=== PATIENT | female | born 1960 | race African-American/Black ===

== ENCOUNTER 2019-03-20 15:50 | Inpatient (IN) | payer OTHER ==
[2019-03-20 18:38] VITALS: BMI 32.3
--- NOTE | 2019-03-20 22:09 | HP ---
CIWA Score Nausea/Vomitin (v omiting x 2) Muscle Tremors: 3 Anxiety: 4-Mod. Anxious/Guarded Agitation: 3 Paroxysmal Sweats: 2 Orientation: 0-Oriented Tacttile Disturbances: 0-None Auditory Disturbances: 0-None Visual Disturbances: 0-None Headache: 4-Moderately Severe CIWA-Ar Total Score: 18 - Admission Criteria OASAS Guidelines: Admission for Medically Managed Detox: Requires at least one of the followin. CIWA greater than 12 2. Seizures within the past 24 hours 3. Delirium tremens within the past 24 hours 4. Hallucinations within the past 24 hours 5. Acute intervention needed for co occurring medical disorder 6. Acute intervention needed for co occurring psychiatric disorder 7. Severe withdrawal that cannot be handled at a lower level of care (continued vomiting, continued diarrhea, abnormal vital signs) requiring intravenous medication and/or fluids 8. Admitting History and Physical - Smoking History Smoking history: Current every day smoker Have you smoked in the past 12 months: Yes Aproximately how many cigarettes per day: 10 Admission ROS [facility] Chief Complaint: Alcohol withdrawal symptoms Allergies/Adverse Reactions: Allergies Allergy/AdvReac Type Severity Reaction Status Date / Time No Known Allergies Allergy Verified 03/20/19 18:29 History of Present Illness: 58 years old female with a long history of alcohol dependence is seeking admission to detox. Patient reports that she had 23 years of sobriety and relapsed in 2010. She was hospitalized involuntarily in 2014 at [facility] for 2 months for suicide attempt and Bipolar depression. She denies suicidal ideation at this time. She has medical history of hypertension, GERD and Psychiatric history of Bipolar disorder, Schizophrenia, depression and anxiety. Patient denies seizure activities and blackouts. Exam Limitations: No Limitations - Ebola screening Have you traveled outside of the country in the last 21 days: No Have you had contact with anyone from an Ebola affected area: No Do you have a fever: No - Review of Systems Constitutional: Chills, Malaise, Night Sweats, Changes in sleep Respiratory: reports: No Symptoms reported Cardiac: reports: No Symptoms Reported GI: reports: Diarrhea (x 3), Poor Appetite, Poor Fluid Intake, Vomiting, Abdominal cramping : reports: No Symptoms Reported Musculoskeletal: reports: Back Pain, Joint Pain, Muscle Pain Integumentary: reports: Dryness, Flushing Neuro: reports: Headache, Tremors Endocrine: reports: No Symptoms Reported Hematology: reports: No Symptoms Reported Psychiatric: reports: Mood/Affect Appropiate, Orientated x3, Anxious, Depressed Other Systems: Reviewed and Negative Patient History - Patient Medical History Hx Anemia: No Hx Asthma: No Hx Chronic Obstructive Pulmonary Disease (COPD): No Hx Cancer: No Hx Cardiac Disorders: No Hx Congestive Heart Failure: No Hx Hypertension: Yes (Norvasc ) Hx Hypercholesterolemia: No HX Cerebrovascular Accident: No Hx Seizures: No Hx Diabetes: No Hx Gastrointestinal Disorders: No Hx Liver Disease: No Hx Genitourinary Disorders: No Hx Sexually Transmitted Disorders: No Hx Renal Disease (ESRD): No Hx Thyroid Disease: No Hx Human Immunodeficiency Virus (HIV): No (Negative December 2018) Hx Hepatitis C: No Hx Depression: Yes (Not on medication) Hx Suicide Attempt: No (Attempt in 2014. Denies suicidal ideation at this time) Hx Bipolar Disorder: Yes Hx Schizophrenia: Yes Other Medical History: Anxiety - Patient Surgical History Past Surgical History: No Hx Neurologic Surgery: No Hx Cataract Extraction: No Hx Cardiac Surgery: No Hx Lung Surgery: No Hx Breast Surgery: No Hx Breast Biopsy: No Hx Abdominal Surgery: No Hx Appendectomy: No Hx Cholecystectomy: No Hx Genitourinary Surgery: No Hx Section: No Hx Orthopedic Surgery: No Anesthesia Reaction: No - PPD History Previous Implant?: Yes Documented Results: Negative w/o proof Implanted On Prior [facility] Admission?: Yes PPD to be Administered?: Yes - Reproductive History Patient is a Female of Child Bearing Age (11 -55 yrs old): Yes LMP comment: Menopausal - Smoking Cessation Smoking history: Current every day smoker Have you smoked in the past 12 months: Yes Aproximately how many cigarettes per day: 10 Hx Chewing Tobacco Use: No Initiated information on smoking cessation: Yes 'Breaking Loose' booklet given: 03/20/19 - Substance & Tx. History Hx Alcohol Use: Yes Hx Substance Use: No Substance Use Type: Cocaine, Marijuana Hx Substance Use Treatment: Yes ([facility] 2010) - Substances abused Alcohol Substance route: Oral Frequency: Daily Amount used: LIQUOR- 2 PINTS BEER- 1 SIX PACK Age of first use: 15 Date of last use: 03/20/19 Heroin Substance route: Inhalation Frequency: Daily Amount used: 2 BAGS Age of first use: 19 Date of last use: 03/18/19 Admission Physical Exam [facility] - Vital Signs Vital Signs: Vital Signs - 24 hr 03/20/19 18:27 Temperature 97.0 F L Pulse Rate 91 H Respiratory 18 Rate Blood Pressure 154/92 - Physical General Appearance: Yes: Moderate Distress, Tremorous, Irritable, Anxious HEENTM: Yes: Within Normal Limits Respiratory: Yes: Lungs Clear, Normal Breath Sounds, No Respiratory Distress Neck: Yes: Supple Breast: Yes: Breast Exam Deferred Cardiology: Yes: Regular Rhythm, Regular Rate Abdominal: Yes: Normal Bowel Sounds, Soft Genitourinary: Yes: Within Normal Limits Back: Yes: Normal Inspection Musculoskeletal: Yes: Back pain, Muscle Pain Extremities: Yes: Tremors Neurological: Yes: Alert, Normal Mood/Affect Integumentary: Yes: Warm Lymphatic: Yes: Within Normal Limits - Diagnostic (1) Alcohol dependence with withdrawal, uncomplicated Current Visit: Yes Status: Chronic (2) GERD (gastroesophageal reflux disease) Current Visit: Yes Status: Chronic Qualifiers: Esophagitis presence: esophagitis presence not specified Qualified Code(s) : K21.9 - Gastro-esophageal reflux disease without esophagitis (3) HTN (hypertension) Current Visit: Yes Status: Chronic Qualifiers: Hypertension type: essential hypertension Qualified Code(s): I10 - Essential (primary) hypertension (4) Nicotine dependence Current Visit: Yes Status: Chronic Qualifiers: Nicotine product type: cigarettes Substance use status: in withdrawal Qualified Code(s): F17.213 - Nicotine dependence, cigarettes, with withdrawal Cleared for Admission [facility] - Detox or Rehab [facility] Level of Care: Medically Managed Detox Regimen/Protocol: Librium Breathalyzer - Breathalyzer Breathalyzer: 0 Urine Drug Screen - Test Device Lot number: [id number] Expiration date: 10/23/20 - Control Is test valid?: Yes - Results Drug screen NEGATIVE: No Urine drug screen results: THC-Marijuana, BOGDAN-Cocaine Inpatient Rehab Admission - Rehab Decision to Admit Inpatient rehab admission?: No
[2019-03-20] MEDS ORDERED: BISMUTH SUBSALICYLATE 524 MG/30 ML UD PO PRN (22:23)
[2019-03-20] MEDS ORDERED: MAG HYDROX/AL HYDROX/SIMETH 30 ML UNIT-DOSE CUP PO PRN (22:23)
[2019-03-20] MEDS ORDERED: MAGNESIUM HYDROX 2400MG/30ML ORAL SUSPENSION 30 ML CUP PO PRN (22:23)
[2019-03-20] MEDS ORDERED: MENTHOL/PHENOL 1 EACH UD MM PRN (22:23)
[2019-03-20] MEDS ORDERED: NICOTINE POLACRILEX 2 MG GUM BUC PRN (22:23)
[2019-03-20] MEDS ORDERED: ACETAMINOPHEN 325 MG TABLET (FP) PO PRN ×2 (22:23)
[2019-03-20] MEDS ORDERED: MAGNESIUM CITRATE 300 ML BOTTLE PO PRN (22:23)
[2019-03-20] MEDS ORDERED: cloNIDine HCL 0.1 MG TABLET PO ONE (22:30)
[2019-03-20] MEDS: chlordiazePOXIDE HCL 25 MG CAPSULE PO SCH (23:29)
[2019-03-20] MEDS: MELATONIN 5 MG TABLETS PO PRN (23:33)
[2019-03-21] MEDS: hydrOXYzine PAMOATE 25 MG CAPSULE (FP) PO PRN (01:18)
[2019-03-21] MEDS: IBUPROFEN 400 MG TABLET (FP) PO PRN ×4 (02:09→23:06)
[2019-03-21] MEDS: METHOCARBAMOL 500 MG TABLET PO PRN ×4 (02:09→23:06)
[2019-03-21] MEDS: chlordiazePOXIDE HCL 25 MG CAPSULE PO PRN ×3 (02:09→13:33)
[2019-03-21] MEDS: chlordiazePOXIDE HCL 25 MG CAPSULE PO SCH ×4 (06:21→22:22)
[2019-03-21] MEDS: amLODIPine BESYLATE 10 MG TABLET (FP) PO SCH (10:04)
[2019-03-21] MEDS: FAMOTIDINE 20 MG TABLET PO SCH (10:04)
[2019-03-21] MEDS: PRENATAL VITAMINS W/ FOLIC ACID TABLET (FP) PO SCH (10:04)
[2019-03-21] MEDS: ASPIRIN 81 MG CHEWABLE TABLETS PO SCH (10:04)
[2019-03-21] MEDS: NICOTINE 14 MG/24 HOURS TOPICAL PATCH TD SCH (10:04)
[2019-03-21 10:19] LABS: HEMATOCRIT 46.3 % (32.4-45.2); HEMOGLOBIN 14.9 GM/dL (10.7-15.3); MCH 28.4 pg (25.7-33.7); MCHC 32.2 g/dl (32.0-36.0); MEAN CELL VOLUME 88.2 fl (80-96); MEAN PLT VOLUME 9.9 fl (7.5-11.1); PLATELET COUNT 305 K/MM3 (134-434); RBC 5.25 M/mm3 (3.60-5.2); RDW 17.1 % (11.6-15.6); WHITE BLOOD COUNT 9.7 K/mm3 (4.0-10.0)
[2019-03-21 10:23] LABS: ALBUMIN 3.7 g/dl (3.4-5.0); BILIRUBIN,TOTAL 0.6 mg/dL (0.2-1); BLOOD UREA NITROGEN 11.4 mg/dL (7-18); CALCIUM 9.7 mg/dL (8.5-10.1); CREATININE 0.9 mg/dL (0.55-1.3); POTASSIUM 4.6 mmol/L (3.5-5.1); TOT PROT 7.3 g/dl (6.4-8.2)
--- NOTE | 2019-03-21 12:24 | PN ---
[facility] CIWA - CIWA Score Nausea/Vomitin-No Nausea/No Vomiting Muscle Tremors: 2 Anxiety: 3 Agitation: 2 Paroxysmal Sweats: 3 Orientation: 0-Oriented Tacttile Disturbances: 1-Very Mild Itch/Numbness Auditory Disturbances: 0-None Visual Disturbances: 0-None Headache: 1-Very Mild CIWA-Ar Total Score: 12 S Progress Note (SOAP) Subjective: c/o sweats, headache, anxiety, and interrupted sleep. Objective: 03/21/19 12:23 Vital Signs 03/21/19 03/21/19 06:22 09:23 Temperature 97.3 F L 98.2 F Pulse Rate 66 105 H Respiratory 18 16 Rate Blood Pressure 99/63 133/80 Laboratory Last Values WBC 9.7 K/mm3 (4.0-10.0) 03/21/19 07:40 RBC 5.25 M/mm3 (3.60-5.2) H 03/21/19 07:40 Hgb 14.9 GM/dL (10.7-15.3) 03/21/19 07:40 Hct 46.3 % (32.4-45.2) H 03/21/19 07:40 MCV 88.2 fl (80-96) 03/21/19 07:40 MCH 28.4 pg (25.7-33.7) 03/21/19 07:40 MCHC 32.2 g/dl (32.0-36.0) 03/21/19 07:40 RDW 17.1 % (11.6-15.6) H 03/21/19 07:40 Plt Count 305 K/MM3 (134-434) 03/21/19 07:40 MPV 9.9 fl (7.5-11.1) 03/21/19 07:40 Sodium 143 mmol/L (136-145) 03/21/19 07:40 Potassium 4.6 mmol/L (3.5-5.1) 03/21/19 07:40 Chloride 109 mmol/L (98-107) H 03/21/19 07:40 Carbon Dioxide 28 mmol/L (21-32) 03/21/19 07:40 Anion Gap 6 MMOL/L (8-16) L 03/21/19 07:40 BUN 11.4 mg/dL (7-18) 03/21/19 07:40 Creatinine 0.9 mg/dL (0.55-1.3) 03/21/19 07:40 Est GFR (CKD-EPI)AfAm 82.84 03/21/19 07:40 Est GFR (CKD-EPI)NonAf 71.48 03/21/19 07:40 Random Glucose 86 mg/dL (74-106) 03/21/19 07:40 Calcium 9.7 mg/dL (8.5-10.1) 03/21/19 07:40 Total Bilirubin 0.6 mg/dL (0.2-1) 03/21/19 07:40 AST 29 U/L (15-37) 03/21/19 07:40 ALT 37 U/L (13-61) 03/21/19 07:40 Alkaline Phosphatase 99 U/L (45-117) 03/21/19 07:40 Total Protein 7.3 g/dl (6.4-8.2) 03/21/19 07:40 Albumin 3.7 g/dl (3.4-5.0) 03/21/19 07:40 RPR Titer Nonreactive (NONREACTIVE) 03/21/19 07:40 Labs noted. Assessment: 03/21/19 12:24 AOX3, in no acute respiratory distress. Full ROM, ambulating in the unit. Withdrawal symptoms. Plan: continue detox.
--- NOTE | 2019-03-21 13:16 | CONSULT ---
[facility] Psychiatric Consult - Data Date of interview: 03/21/19 Admission source: [facility] Identifying data: Readmission to [facility] for this 58 y/o AA female self- referred for detoxification. [place] issues : heroin, cocaine. Interviewed at [address] [place] [address]. Patient is single, a mother of three, domiciled, unemployed and supported on Disability benefits. Substance Abuse History: Discussed with the patient. Details in [facility] report as follows : Smoking history: Current every day smoker. Have you smoked in the past 12 months: Yes. Aproximately how many cigarettes per day: 10. Hx Chewing Tobacco Use: No. Initiated information on smoking cessation: Yes. ' Breaking Loose' booklet given: 03/20/19. - Substance & Tx. History. Hx Alcohol Use: Yes. Hx Substance Use: No. Substance Use Type: Cocaine, Marijuana. Hx Substance Use Treatment: Yes ([facility] 2010). - Substances abused. Alcohol. Substance route: Oral. Frequency: Daily. Amount used: LIQUOR- 2 PINTS BEER- 1 SIX PACK. Age of first use: 15. Date of last use: 03/20/19. Heroin. Substance route: Inhalation. Frequency: Daily. Amount used: 2 BAGS. Age of first use: 19. Date of last use: 03/18/19 Medical History: Medical profile is consistent with obesity, GERD and hypertension. Psychiatric History: Patient endorses one psychiatric hospitalization at [facility] in 2014 (suicidal ideation to jump off of a roof). Reportedly diagnosed with Bipolar Disorder. Ms Mcmahon reports maintenance ofn seroquel 100 mg/bid. She dropped out of methadone maintenance (50 mg/day) at the [facility] program in December 2018. Patient sees a psychiatrist for OPD care at the [facility] in [facility]. No repeat of suicide attempt since 2014. Physical/Sexual Abuse/Trauma History: Patient denies history of abuse. Additional Comment: Urine drug screen results: THC-Marijuana, BOGDAN-Cocaine. Noted. Mental Status Exam - Mental Status Exam Alert and Oriented to: Time, Place, Person Cognitive Function: Good Patient Appearance: Well Groomed (overweight) Mood: Withdrawn, Anxious, Hopeful Affect: Mood Congruent, Constricted Patient Behavior: Fatigued, Appropriate, Cooperative Speech Pattern: Clear, Appropriate Voice Loudness: Normal Thought Process: Intact, Goal Oriented Thought Disorder: Not Present Hallucinations: Denies Suicidal Ideation: Denies Homicidal Ideation: Denies Insight/Judgement: Poor Sleep: Poorly, Difficulty falling asleep Appetite: Good Gait/Station: Normal Psychiatric Findings - Problem List ([place] 1, 2,3) (1) Alcohol dependence with withdrawal, uncomplicated Current Visit: Yes Status: Chronic (2) Nicotine dependence Current Visit: Yes Status: Chronic Qualifiers: Nicotine product type: cigarettes Substance use status: in withdrawal Qualified Code(s): F17.213 - Nicotine dependence, cigarettes, with withdrawal (3) Cocaine use disorder Current Visit: Yes Status: Chronic (4) Cannabis abuse Current Visit: Yes Status: Chronic (5) Substance induced mood disorder Current Visit: Yes Status: Chronic (6) History of bipolar disorder Current Visit: Yes Status: Chronic (7) Insomnia Current Visit: Yes Status: Chronic - Initial Treatment Plan Initial Treatment Plan: Psychoeducation. Sleep hygiene. Detoxification. Support. Resumed : seroquel 100 mg po bid. Side effects/benefits discussed with the patient. Informed consent (verbal) received from the patient. Observation.
--- NOTE | 2019-03-21 13:28 | EKG ---
Test Reason : Blood Pressure : / mmHG Vent. Rate : 069 BPM Atrial Rate : 069 BPM P-R Int : 142 ms QRS Dur : 086 ms QT Int : 400 ms P-R-T Axes : 035 026 032 degrees QTc Int : 428 ms NORMAL SINUS RHYTHM NORMAL ECG NO PREVIOUS ECGS AVAILABLE Confirmed by OLIVIER HAQ MD ([id number]) on 03/21/2019 1:27:30 PM Referred By: Won Kirk Confirmed By:OLIVIER HAQ MD
[2019-03-21] MEDS ORDERED: QUEtiapine FUMARATE 200 MG TABLET PO SCH (22:00)
[2019-03-21] MEDS: THIAMINE HCL 100 MG TABLET (FP) PO SCH (22:22)
[2019-03-21] MEDS: QUEtiapine FUMARATE 100 MG TABLET (FP) PO SCH (23:06)
[2019-03-22] MEDS: chlordiazePOXIDE HCL 25 MG CAPSULE PO SCH ×4 (05:27→22:08)
[2019-03-22] MEDS: IBUPROFEN 400 MG TABLET (FP) PO PRN ×2 (08:43→17:18)
[2019-03-22] MEDS: ASPIRIN 81 MG CHEWABLE TABLETS PO SCH (10:07)
[2019-03-22] MEDS: FAMOTIDINE 20 MG TABLET PO SCH (10:07)
[2019-03-22] MEDS: QUEtiapine FUMARATE 100 MG TABLET (FP) PO SCH ×2 (10:07→22:08)
[2019-03-22] MEDS: PRENATAL VITAMINS W/ FOLIC ACID TABLET (FP) PO SCH (10:07)
[2019-03-22] MEDS: METHOCARBAMOL 500 MG TABLET PO PRN ×2 (10:07→17:18)
[2019-03-22] MEDS: amLODIPine BESYLATE 10 MG TABLET (FP) PO SCH (10:07)
[2019-03-22] MEDS: NICOTINE 14 MG/24 HOURS TOPICAL PATCH TD SCH (10:07)
--- NOTE | 2019-03-22 11:35 | PN ---
[facility] CIWA - CIWA Score Nausea/Vomitin-No Nausea/No Vomiting Muscle Tremors: 2 Anxiety: 3 Agitation: 2 Paroxysmal Sweats: 3 Orientation: 0-Oriented Tacttile Disturbances: 0-None Auditory Disturbances: 0-None Visual Disturbances: 0-None Headache: 0-None Present CIWA-Ar Total Score: 10 S Progress Note (SOAP) Subjective: c/o sweats, anxiety, and irritability. Objective: 03/22/19 11:34 Vital Signs 03/22/19 03/22/19 06:47 09:23 Temperature 97.7 F 96.6 F L Pulse Rate 75 88 Respiratory 20 18 Rate Blood Pressure 123/73 141/90 Laboratory Last Values WBC 9.7 K/mm3 (4.0-10.0) 03/21/19 07:40 RBC 5.25 M/mm3 (3.60-5.2) H 03/21/19 07:40 Hgb 14.9 GM/dL (10.7-15.3) 03/21/19 07:40 Hct 46.3 % (32.4-45.2) H 03/21/19 07:40 MCV 88.2 fl (80-96) 03/21/19 07:40 MCH 28.4 pg (25.7-33.7) 03/21/19 07:40 MCHC 32.2 g/dl (32.0-36.0) 03/21/19 07:40 RDW 17.1 % (11.6-15.6) H 03/21/19 07:40 Plt Count 305 K/MM3 (134-434) 03/21/19 07:40 MPV 9.9 fl (7.5-11.1) 03/21/19 07:40 Sodium 143 mmol/L (136-145) 03/21/19 07:40 Potassium 4.6 mmol/L (3.5-5.1) 03/21/19 07:40 Chloride 109 mmol/L (98-107) H 03/21/19 07:40 Carbon Dioxide 28 mmol/L (21-32) 03/21/19 07:40 Anion Gap 6 MMOL/L (8-16) L 03/21/19 07:40 BUN 11.4 mg/dL (7-18) 03/21/19 07:40 Creatinine 0.9 mg/dL (0.55-1.3) 03/21/19 07:40 Est GFR (CKD-EPI)AfAm 82.84 03/21/19 07:40 Est GFR (CKD-EPI)NonAf 71.48 03/21/19 07:40 Random Glucose 86 mg/dL (74-106) 03/21/19 07:40 Calcium 9.7 mg/dL (8.5-10.1) 03/21/19 07:40 Total Bilirubin 0.6 mg/dL (0.2-1) 03/21/19 07:40 AST 29 U/L (15-37) 03/21/19 07:40 ALT 37 U/L (13-61) 03/21/19 07:40 Alkaline Phosphatase 99 U/L (45-117) 03/21/19 07:40 Total Protein 7.3 g/dl (6.4-8.2) 03/21/19 07:40 Albumin 3.7 g/dl (3.4-5.0) 03/21/19 07:40 RPR Titer Nonreactive (NONREACTIVE) 03/21/19 07:40 Labs noted. Assessment: 03/22/19 11:34 AOx3, in no acute respiratory distress. Full rom, ambulating in the unit. Withdrawal symptoms. Plan: continue detox.
[2019-03-22] MEDS: chlordiazePOXIDE HCL 25 MG CAPSULE PO PRN ×2 (12:41→19:32)
[2019-03-22] MEDS: hydrOXYzine PAMOATE 25 MG CAPSULE (FP) PO PRN (13:25)
[2019-03-22] MEDS: THIAMINE HCL 100 MG TABLET (FP) PO SCH (22:08)
[2019-03-23] MEDS ORDERED: chlordiazePOXIDE HCL 10 MG CAPSULE PO PRN
[2019-03-23] MEDS: MELATONIN 5 MG TABLETS PO PRN (01:56)
[2019-03-23] MEDS ORDERED: chlordiazePOXIDE HCL 10 MG CAPSULE PO SCH (05:00)
[2019-03-23] MEDS: IBUPROFEN 400 MG TABLET (FP) PO PRN (06:06)
[2019-03-23 09:12] VITALS: BP 138/88; PULSE 92; TEMP 98.3
--- NOTE | 2019-03-23 12:02 | DS ---
[facility] Detox Discharge Summary Admission Date: 03/20/19 Discharge Date: 03/23/19 - History Present History: Alcohol Dependence Additional Comments: 58 years old female admitted on 03/20/19 for alcohol withdrawal sx management treated with libirum detox regimen patient is alert oriented x 3 steady gait speech clearly coherently patient insists to leave the detox unit today that chemical detoxification is not for her and she is not ready for recovery encourage the patient returning for in patient chemical rehab Pertinent Past History: case discussed with the nurse and the counselor that against medical advice is appropriated - Physical Exam Results Vital Signs: Vital Signs Temperature 98.3 F 03/23/19 09:11 Pulse Rate 92 H 03/23/19 09:11 Respiratory Rate 20 03/23/19 09:11 Blood Pressure 138/88 03/23/19 09:11 O2 Sat by Pulse Oximetry (%) Pertinent Admission Physical Exam Findings: alcohol withdrawal Laboratory Last Values WBC 9.7 K/mm3 (4.0-10.0) 03/21/19 07:40 RBC 5.25 M/mm3 (3.60-5.2) H 03/21/19 07:40 Hgb 14.9 GM/dL (10.7-15.3) 03/21/19 07:40 Hct 46.3 % (32.4-45.2) H 03/21/19 07:40 MCV 88.2 fl (80-96) 03/21/19 07:40 MCH 28.4 pg (25.7-33.7) 03/21/19 07:40 MCHC 32.2 g/dl (32.0-36.0) 03/21/19 07:40 RDW 17.1 % (11.6-15.6) H 03/21/19 07:40 Plt Count 305 K/MM3 (134-434) 03/21/19 07:40 MPV 9.9 fl (7.5-11.1) 03/21/19 07:40 Sodium 143 mmol/L (136-145) 03/21/19 07:40 Potassium 4.6 mmol/L (3.5-5.1) 03/21/19 07:40 Chloride 109 mmol/L (98-107) H 03/21/19 07:40 Carbon Dioxide 28 mmol/L (21-32) 03/21/19 07:40 Anion Gap 6 MMOL/L (8-16) L 03/21/19 07:40 BUN 11.4 mg/dL (7-18) 03/21/19 07:40 Creatinine 0.9 mg/dL (0.55-1.3) 03/21/19 07:40 Est GFR (CKD-EPI)AfAm 82.84 03/21/19 07:40 Est GFR (CKD-EPI)NonAf 71.48 03/21/19 07:40 Random Glucose 86 mg/dL (74-106) 03/21/19 07:40 Calcium 9.7 mg/dL (8.5-10.1) 03/21/19 07:40 Total Bilirubin 0.6 mg/dL (0.2-1) 03/21/19 07:40 AST 29 U/L (15-37) 03/21/19 07:40 ALT 37 U/L (13-61) 03/21/19 07:40 Alkaline Phosphatase 99 U/L (45-117) 03/21/19 07:40 Total Protein 7.3 g/dl (6.4-8.2) 03/21/19 07:40 Albumin 3.7 g/dl (3.4-5.0) 03/21/19 07:40 RPR Titer Nonreactive (NONREACTIVE) 03/21/19 07:40 blood noted - Treatment Hospital Course: Detox Protocol Followed, Discharged Condition Good Patient has Accepted a Rehab Referral to: community support approach - Medication Discharge Medications: Ambulatory Orders Amlodipine Besylate [Norvasc -] 10 mg PO DAILY 03/20/19 Aspirin [ASA -] 81 mg PO DAILY 03/20/19 Famotidine [Pepcid -] 20 mg PO DAILY 03/20/19 Quetiapine Fumarate [Seroquel -] 200 mg PO HS 03/20/19 clonazePAM [Klonopin -] 2 mg PO BID 03/20/19 - Diagnosis (1) Alcohol dependence with withdrawal, uncomplicated Status: Acute (2) GERD (gastroesophageal reflux disease) Status: Chronic Qualifiers: Esophagitis presence: without esophagitis Qualified Code(s): K21.9 - Gastro -esophageal reflux disease without esophagitis (3) HTN (hypertension) Status: Chronic Qualifiers: Hypertension type: essential hypertension Qualified Code(s): I10 - Essential (primary) hypertension (4) Nicotine dependence Status: Acute Qualifiers: Nicotine product type: cigarettes Substance use status: in withdrawal Qualified Code(s): F17.213 - Nicotine dependence, cigarettes, with withdrawal (5) Substance induced mood disorder Status: Suspected - AMA Did Patient Leave Against Medical Advice: Yes
[2019-03-24] MEDS ORDERED: chlordiazePOXIDE HCL 10 MG CAPSULE PO SCH (05:00)
[2019-03-25] MEDS ORDERED: chlordiazePOXIDE HCL 10 MG CAPSULE PO ONE (05:00)
== END 2019-03-23 09:18 | disposition left against medical advice (07) | DRG 894 ==
LOC: YASAS 15:50 → Y3N 22:38
PROVIDERS: ADMIT Allergy & Immunology; ATTEND Allergy & Immunology
PROC: HZ2ZZZZ Detoxification Services for Substance Abuse Treatment (ICD-10-PCS; principal; 2019-03-20)
DX: F10.230 Alcohol dependence with withdrawal, uncomplicated (principal); F14.90 Cocaine use, unspecified, uncomplicated; F12.10 Cannabis abuse, uncomplicated; F17.210 Nicotine dependence, cigarettes, uncomplicated; F19.24 Other psychoactive substance dependence with psychoactive substance-induced mood disorder; I10 Essential (primary) hypertension; K21.9 Gastro-esophageal reflux disease without esophagitis; G47.00 Insomnia, unspecified; E66.9 Obesity, unspecified; Z68.32 Body mass index [BMI] 32.0-32.9, adult; Z91.5 Personal history of self-harm
CPT/HCPCS: 36415; 80053; 85027; 86480; 86593; 93005; 93010; J0735

== ENCOUNTER 2023-01-03 10:51 | Inpatient (IN) | payer OTHER ==
[2023-01-03 11:25] VITALS: BMI 25.4
[2023-01-03] MEDS ORDERED: LOPERAMIDE HCL 2 MG CAPSULE PO PRN (11:55)
[2023-01-03] MEDS ORDERED: POLYETHYLENE GLYCOL (HEALTHYLAX) 3350 17 GM PACKET PO PRN (11:55)
[2023-01-03] MEDS ORDERED: NALOXONE HCL 0.4 MG/ML VIAL IM PRN (11:55)
[2023-01-03] MEDS ORDERED: IBUPROFEN 400 MG TABLET (FP) PO PRN (11:55)
[2023-01-03] MEDS ORDERED: MAG HYDROX/AL HYDROX/SIMETH 30 ML UNIT-DOSE CUP PO PRN (11:55)
[2023-01-03] MEDS ORDERED: NALOXONE HCL (KLOXXADO) 8 MG SPRAY NS PRN (11:55)
[2023-01-03] MEDS ORDERED: DICYCLOMINE HCL 10 MG CAPSULE PO PRN (11:55)
[2023-01-03] MEDS ORDERED: ONDANSETRON *ODT* 4 MG TABLET SL PRN (11:55)
[2023-01-03] MEDS ORDERED: BENZOCAINE/MENTHOL (CHLORASEPTIC ) LOZENGE MM PRN (11:55)
[2023-01-03] MEDS ORDERED: BISMUTH SUBSALICYLATE 262 MG/15 ML BTL PO PRN (11:55)
[2023-01-03] MEDS ORDERED: ACETAMINOPHEN 325 MG TABLET (FP) PO PRN (11:55)
[2023-01-03] MEDS ORDERED: NICOTINE POLACRILEX 4 MG GUM BUC PRN (11:55)
[2023-01-03] MEDS ORDERED: MAGNESIUM HYDROX 2400MG/30ML ORAL SUSPENSION 30 ML CUP PO PRN (11:55)
[2023-01-03] MEDS ORDERED: guaiFENesin 600 MG TABLET.ER (FP) PO PRN (11:55)
[2023-01-03] MEDS ORDERED: BENZONATATE 200 MG CAPSULE PO PRN (11:55)
[2023-01-03] MEDS: PRENATAL VITAMINS W/ FOLIC ACID TABLET (FP) PO SCH (12:40)
[2023-01-03] MEDS ORDERED: PRENATAL VITAMINS W/ FOLIC ACID TABLET (FP) PO ONE (12:41)
[2023-01-03] MEDS: chlordiazePOXIDE HCL 25 MG CAPSULE PO PRN (13:27)
[2023-01-03] MEDS: chlordiazePOXIDE HCL 25 MG CAPSULE PO SCH ×2 (17:03→22:03)
[2023-01-03] MEDS: IBUPROFEN 600 MG TABLET (FP) PO PRN (17:04)
[2023-01-03] MEDS ORDERED: QUEtiapine FUMARATE 200 MG TABLET PO SCH (22:00)
[2023-01-03] MEDS: MELATONIN 5 MG TABLETS PO SCH (22:03)
[2023-01-03] MEDS: THIAMINE HCL 100 MG TABLET (FP) PO SCH (22:03)
[2023-01-04] MEDS: chlordiazePOXIDE HCL 25 MG CAPSULE PO SCH ×4 (05:35→22:09)
[2023-01-04] MEDS ORDERED: methaDONE HCL 10 MG TABLET PO SCH (06:00)
[2023-01-04] MEDS: methaDONE 40 MG, methaDONE 10 MG PO SCH (06:24)
[2023-01-04 09:31] LABS: HEMATOCRIT 36.9 % (32.4-45.2); HEMOGLOBIN 12.7 GM/dL (10.7-15.3); MCH 29.7 pg (25.7-33.7); MCHC 34.4 g/dl (32.0-36.0); MEAN CELL VOLUME 86.4 fl (80-96); MEAN PLT VOLUME 8.6 fl (7.5-11.1); PLATELET COUNT 258 10^3/uL (134-434); RBC 4.28 M/mm3 (3.60-5.2); RDW 15.7 % (11.6-15.6); WHITE BLOOD COUNT 6.7 K/mm3 (4.0-10.0)
[2023-01-04 10:05] LABS: BLOOD UREA NITROGEN 12.7 mg/dL (7-18); CREATININE 0.8 mg/dL (0.55-1.3)
[2023-01-04 10:07] LABS: ALBUMIN 2.9 g/dl (3.4-5.0); BILIRUBIN,TOTAL 0.4 mg/dL (0.2-1)
[2023-01-04] MEDS: ASPIRIN 81 MG CHEWABLE TABLETS PO SCH (10:09)
[2023-01-04] MEDS: amLODIPine BESYLATE 10 MG TABLET (FP) PO SCH (10:09)
[2023-01-04] MEDS: PRENATAL VITAMINS W/ FOLIC ACID TABLET (FP) PO SCH (10:09)
[2023-01-04] MEDS: FAMOTIDINE 20 MG TABLET PO SCH (10:09)
[2023-01-04] MEDS: hydrOXYzine PAMOATE 25 MG CAPSULE (FP) PO PRN (10:10)
[2023-01-04 10:13] LABS: CALCIUM 8.6 mg/dL (8.5-10.1)
[2023-01-04] MEDS: IBUPROFEN 600 MG TABLET (FP) PO PRN ×2 (11:53→20:22)
[2023-01-04] MEDS: LACTULOSE 20 GM/30 ML UDC (FOR ORAL USE ONLY) PO SCH ×2 (13:05→22:09)
[2023-01-04] MEDS: chlordiazePOXIDE HCL 25 MG CAPSULE PO PRN (14:08)
[2023-01-04] MEDS ORDERED: QUEtiapine FUMARATE 200 MG TABLET PO SCH (22:00)
[2023-01-04] MEDS: THIAMINE HCL 100 MG TABLET (FP) PO SCH (22:07)
[2023-01-04] MEDS: MELATONIN 5 MG TABLETS PO SCH (22:07)
[2023-01-04] MEDS: CYCLOBENZAPRINE HCL 10 MG TABLET (FP) PO PRN (22:09)
[2023-01-05] MEDS: methaDONE 40 MG, methaDONE 10 MG PO SCH (05:19)
[2023-01-05] MEDS: chlordiazePOXIDE HCL 25 MG CAPSULE PO SCH ×4 (05:19→22:05)
[2023-01-05] MEDS: LACTULOSE 20 GM/30 ML UDC (FOR ORAL USE ONLY) PO SCH ×3 (05:19→22:04)
[2023-01-05] MEDS: ASPIRIN 81 MG CHEWABLE TABLETS PO SCH (10:18)
[2023-01-05] MEDS: hydrOXYzine PAMOATE 25 MG CAPSULE (FP) PO PRN (10:19)
[2023-01-05] MEDS: PRENATAL VITAMINS W/ FOLIC ACID TABLET (FP) PO SCH (10:19)
[2023-01-05] MEDS: FAMOTIDINE 20 MG TABLET PO SCH (10:19)
[2023-01-05] MEDS: amLODIPine BESYLATE 10 MG TABLET (FP) PO SCH (10:19)
[2023-01-05] MEDS: IBUPROFEN 600 MG TABLET (FP) PO PRN (12:18)
[2023-01-05] MEDS: CYCLOBENZAPRINE HCL 10 MG TABLET (FP) PO PRN (17:59)
[2023-01-05] MEDS ORDERED: QUEtiapine FUMARATE 400 MG TABLET PO SCH (22:00)
[2023-01-05] MEDS: MELATONIN 5 MG TABLETS PO SCH (22:04)
[2023-01-05] MEDS: QUEtiapine FUMARATE 300 MG TABLET PO SCH (22:05)
[2023-01-05] MEDS: THIAMINE HCL 100 MG TABLET (FP) PO SCH (22:05)
[2023-01-06] MEDS ORDERED: chlordiazePOXIDE HCL 10 MG CAPSULE PO PRN
[2023-01-06] MEDS: LACTULOSE 20 GM/30 ML UDC (FOR ORAL USE ONLY) PO SCH ×4 (05:33→22:02)
[2023-01-06] MEDS: methaDONE 40 MG, methaDONE 10 MG PO SCH (05:33)
[2023-01-06] MEDS: chlordiazePOXIDE HCL 10 MG CAPSULE PO SCH ×4 (05:33→22:02)
[2023-01-06] MEDS: ASPIRIN 81 MG CHEWABLE TABLETS PO SCH (09:40)
[2023-01-06] MEDS: PRENATAL VITAMINS W/ FOLIC ACID TABLET (FP) PO SCH (09:40)
[2023-01-06] MEDS: amLODIPine BESYLATE 10 MG TABLET (FP) PO SCH (09:41)
[2023-01-06] MEDS: FAMOTIDINE 20 MG TABLET PO SCH (09:41)
[2023-01-06] MEDS ORDERED: QUEtiapine FUMARATE 50 MG TABLET PO SCH (10:00)
[2023-01-06] MEDS: CYCLOBENZAPRINE HCL 10 MG TABLET (FP) PO PRN (10:22)
[2023-01-06 13:38] VITALS: RESP 18
[2023-01-06] MEDS: QUEtiapine FUMARATE 300 MG TABLET PO SCH (22:02)
[2023-01-06] MEDS: MELATONIN 5 MG TABLETS PO SCH (22:02)
[2023-01-06] MEDS: THIAMINE HCL 100 MG TABLET (FP) PO SCH (22:02)
[2023-01-07] MEDS ORDERED: chlordiazePOXIDE HCL 10 MG CAPSULE PO SCH (05:00)
[2023-01-07] MEDS: methaDONE 40 MG, methaDONE 10 MG PO SCH (06:14)
[2023-01-07] MEDS: CYCLOBENZAPRINE HCL 10 MG TABLET (FP) PO PRN (06:34)
[2023-01-07] MEDS: IBUPROFEN 600 MG TABLET (FP) PO PRN (06:34)
[2023-01-07] MEDS: ASPIRIN 81 MG CHEWABLE TABLETS PO SCH (10:21)
[2023-01-07] MEDS: PRENATAL VITAMINS W/ FOLIC ACID TABLET (FP) PO SCH (10:21)
[2023-01-07] MEDS: amLODIPine BESYLATE 10 MG TABLET (FP) PO SCH (10:22)
[2023-01-07] MEDS: FAMOTIDINE 20 MG TABLET PO SCH (10:22)
[2023-01-07] MEDS: LACTULOSE 20 GM/30 ML UDC (FOR ORAL USE ONLY) PO SCH ×2 (10:23→13:11)
[2023-01-07 17:52] VITALS: BP 114/72; PULSE 99; TEMP 97.5
[2023-01-08] MEDS ORDERED: chlordiazePOXIDE HCL 10 MG CAPSULE PO ONE (05:00)
== END 2023-01-07 16:55 | disposition home or self-care (01) | DRG 897 ==
LOC: YASAS 10:51 → Y3N 12:59
PROVIDERS: ADMIT Allergy & Immunology; ATTEND Surgery
PROC: HZ2ZZZZ Detoxification Services for Substance Abuse Treatment (ICD-10-PCS; principal; 2023-01-03)
DX: F10.230 Alcohol dependence with withdrawal, uncomplicated (principal); F11.20 Opioid dependence, uncomplicated; E72.20 Disorder of urea cycle metabolism, unspecified; F14.10 Cocaine abuse, uncomplicated; F17.210 Nicotine dependence, cigarettes, uncomplicated; F19.24 Other psychoactive substance dependence with psychoactive substance-induced mood disorder; F20.9 Schizophrenia, unspecified; F31.9 Bipolar disorder, unspecified; I10 Essential (primary) hypertension; K21.9 Gastro-esophageal reflux disease without esophagitis; Z86.59 Personal history of other mental and behavioral disorders; Z86.69 Personal history of other diseases of the nervous system and sense organs
CPT/HCPCS: 36415; 80053; 82140; 85027; 86780; 87635; 93005; 93010; Q0162